=== PATIENT | male | born 1940 | race Hispanic/Latino ===

== ENCOUNTER 2021-12-19 14:32 | Emergency (ER) | payer MEDICARE ==
[2021-12-19 15:16] LABS: Basophils % (Auto) 0.3 % (0.0-1.8); Eosinophils % (Auto) 0.2 % (0.0-4.3); Lymphocytes # (Auto) 0.5 K/mm3 (1.2-5.4); Lymphocytes % (Auto) 4.9 % (13.4-35.0); Mean Corpuscular HGB Conc 36 % (32-34); Mean Corpuscular Volume 90 fl (84-94); Monocytes # (Auto) 0.6 K/mm3 (0.0-0.8); Monocytes % (Auto) 5.1 % (0.0-7.3); Platelet Count 285 K/mm3 (140-440); Red Blood Count 4.84 M/mm3 (3.65-5.03); Red Cell Distribution Width 14.4 % (13.2-15.2)
[2021-12-19 15:17] LABS: Hematocrit 43.5 % (35.5-45.6); Hemoglobin 15.6 gm/dl (11.8-15.2)
--- NOTE | 2021-12-19 15:18 | XRay Report ---
CHEST 1 VIEW 12/19/2021 2:57 PM INDICATION / CLINICAL INFORMATION: Syncope. COMPARISON: 12/06/08. FINDINGS: SUPPORT DEVICES: None. HEART / MEDIASTINUM: The heart size and pulmonary vasculature are normal. There is mild calcification in the aortic arch without aneurysm. LUNGS / PLEURA: No significant pulmonary or pleural abnormality. No pneumothorax. ADDITIONAL FINDINGS: No significant additional findings. IMPRESSION: No acute findings. Signer Name: David Ascencio MD Signed: 12/19/2021 3:14 PM Workstation Name: Dr. [email or web address]
--- NOTE | 2021-12-19 15:18 | XRay Report ---
PELVIS ONE VIEW INDICATION: fall. COMPARISON: None. IMPRESSION: No pelvic fracture, bone lesion or diastasis is identified. There are mild symmetric deg enerative changes at the SI joints and lower lumbar spine. Bilateral hips are unremarkable. 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 The soft tissues are unremarkable. Signer Name: Esa Hong Jr, MD Signed: 12/19/2021 3:14 PM Workstation Name: [id number]
[2021-12-19 15:25] LABS: INR 0.98 (0.87-1.13)
--- NOTE | 2021-12-19 15:31 | Cat Scan Report ---
CT head/brain wo con INDICATION / CLINICAL INFORMATION: 81 years Male; Syncope. TECHNIQUE: Routine CT head without contrast. All CT scans at this location are performed using CT dos e reduction for ALARA by means of automated exposure control. COMPARISON: None. 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 Small synovial cyst is seen adjacent to the paracentral lobule on the left. No acute hemorrhage, mass effect, midline shift, hydrocephalus, or acute, large territorial infarct. Mild to moderate, diffuse cerebral and cerebellar atrophy. Moderate degree of hippocampal atrophy sug gested bilaterally. There are [id number] areas of decreased attenuation in the white matter of the cerebral hemisph eres. These are nonspecific findings and may be related to microangiopathy (hypertension, diabetes, a therosclerosis), given the patient's age. It might be difficult to evaluate for small areas of ischem ia without diffusion imaging by MRI. CRANIOCERVICAL JUNCTION: No significant abnormality. ORBITS: No significant abnormality of visualized orbits. SINUSES / MASTOIDS: Visualized paranasal sinuses and mastoid air cells are essentially clear. ADDITIONAL FINDINGS: Atherosclerotic disease is seen in the anterior and posterior circulation. IMPRESSION: 1. No focal intra-axial mass, hemorrhage, hydrocephalus, or acute, large territorial infarct. Signer Name: Lui Villafuerte MD, III Signed: 12/19/2021 3:26 PM Workstation Name: [id number]
[2021-12-19 15:36] LABS: Creatine Kinase MB 2.6 ng/mL (0.0-4.0)
[2021-12-19 15:37] LABS: Alanine Aminotransferase 15 units/L (7-56); Albumin 4.4 g/dL (3.9-5); BUN/Creatinine Ratio 17; Blood Urea Nitrogen 20 mg/dL (9-20); Calcium 9.8 mg/dL (8.4-10.2); Hemolysis Index 4
--- NOTE | 2021-12-19 18:36 | Emergency Department Report ---
ED General Adult HPI - General Chief complaint: Syncope Stated complaint: REPEAT FALLS Time Seen by Provider: 12/19/21 14:49 Source: patient, EMS Mode of arrival: Stretcher Limitations: No Limitations - History of Present Illness Initial comments: Patient presents to the emergency department via EMS for a fall that occurred at home. Per EMS the patient fell while ambulating at home and upon getting up he fell again. Patient has no complaints of pain but is not sure if he hit his head or not. There is no loss of consciousness. Patient is alert oriented x3 on initial presentation. Patient denies chest pain, shortness breath, or headache. -: Sudden Severity scale (0 -10): 0 Consistency: now resolved Improves with: none Worsens with: none Associated Symptoms: denies other symptoms Treatments Prior to Arrival: none - Related Data Home Medications Medication Instructions Recorded Confirmed Last Taken Aspirin EC [Halfprin EC] 81 mg PO DAILY 09/17/14 09/17/14 09/17/14 Lisinopril [Zestril] 30 mg PO QDAY 09/17/14 09/17/14 09/17/14 Multivitamin [Multi Vitamin Daily] 1 tab PO DAILY 09/17/14 09/17/14 09/17/14 Pravastatin [Pravachol] 40 mg PO DAILY 09/17/14 09/17/14 09/17/14 Previous Rx's Medication Instructions Recorded Last Taken Type lisinopriL [Zestril TAB] 40 mg PO QDAY 30 Days tablet 09/18/14 Unknown Rx Allergies Allergy/AdvReac Type Severity Reaction Status Date / Time No Known Allergies Allergy Unverified 09/17/14 21:41 ED Review of Systems ROS: Stated complaint: REPEAT FALLS Other details as noted in HPI Comment: All other systems reviewed and negative Constitutional: denies: chills, fever Eyes: denies: eye pain, eye discharge, vision change ENT: denies: ear pain, throat pain Respiratory: denies: cough, shortness of breath, wheezing Cardiovascular: denies: chest pain, palpitations Endocrine: no symptoms reported Gastrointestinal: denies: abdominal pain, nausea, diarrhea Genitourinary: denies: urgency, dysuria Musculoskeletal: denies: back pain, joint swelling, arthralgia Skin: denies: rash, lesions Neurological: denies: headache, weakness, paresthesias Psychiatric: denies: anxiety, depression Hematological/Lymphatic: denies: easy bleeding, easy bruising ED Past Medical Hx - Past Medical History Hx Hypertension: Yes Additional medical history: hyperlipidemia. diverticulitis - Surgical History Hx Cholecystectomy: Yes - Social History Smoking Status: Never Smoker Substance Use Type: None - Medications Home Medications: Home Medications Medication Instructions Recorded Confirmed Last Taken Type Aspirin EC [Halfprin EC] 81 mg PO DAILY 09/17/14 09/17/14 09/17/14 History Lisinopril [Zestril] 30 mg PO QDAY 09/17/14 09/17/14 09/17/14 History Multivitamin [Multi Vitamin Daily] 1 tab PO DAILY 09/17/14 09/17/14 09/17/14 History Pravastatin [Pravachol] 40 mg PO DAILY 09/17/14 09/17/14 09/17/14 History lisinopriL [Zestril TAB] 40 mg PO QDAY 30 Days tablet 09/18/14 Unknown Rx ED Physical Exam - General Limitations: No Limitations General appearance: alert, in no apparent distress - Head Head exam: Present: atraumatic, normocephalic - Eye Eye exam: Present: normal appearance, PERRL, EOMI - ENT ENT exam: Present: mucous membranes moist - Neck Neck exam: Present: normal inspection - Respiratory Respiratory exam: Present: normal lung sounds bilaterally. Absent: respiratory distress - Cardiovascular Cardiovascular Exam: Present: regular rate, normal rhythm. Absent: systolic murmur, diastolic murmur, rubs, gallop - GI/Abdominal GI/Abdominal exam: Present: soft, normal bowel sounds, hernia (The patient has an anterior abdominal wall hernia that is nonincarcerated and easily reducible). Absent: distended, tenderness - Rectal Rectal exam: Present: deferred - Extremities Exam Extremities exam: Present: normal inspection - Back Exam Back exam: Present: normal inspection - Neurological Exam Neurological exam: Present: alert, oriented X3, CN II-XII intact. Absent: motor sensory deficit - Psychiatric Psychiatric exam: Present: normal affect, normal mood - Skin Skin exam: Present: warm, dry, intact, normal color. Absent: rash ED Medical Decision Making - Lab Data Result diagrams: 12/19/21 14:58 12/19/21 14:58 Lab Results 05/10/22 05/10/22 05/10/22 Range/Units 14:58 14:58 14:58 WBC 11.2 H (4.5-11.0) K/mm3 RBC 4.84 (3.65-5.03) M/mm3 Hgb 15.6 H (11.8-15.2) gm/dl Hct 43.5 (35.5-45.6) % MCV 90 (84-94) fl MCH 32 (28-32) pg MCHC 36 H (32-34) % RDW 14.4 (13.2-15.2) % Plt Count 285 (140-440) K/mm3 Lymph % (Auto) 4.9 L (13.4-35.0) % [place] % (Auto) 5.1 (0.0-7.3) % Eos % (Auto) 0.2 (0.0-4.3) % Baso % (Auto) 0.3 (0.0-1.8) % Lymph # (Auto) 0.5 L (1.2-5.4) K/mm3 [place] # (Auto) 0.6 (0.0-0.8) K/mm3 Eos # (Auto) 0.0 (0.0-0.4) K/mm3 Baso # (Auto) 0.0 (0.0-0.1) K/mm3 Seg Neutrophils % 89.5 H (40.0-70.0) % Seg Neutrophils # 10.0 H (1.8-7.7) K/mm3 PT 14.1 (12.2-14.9) Sec. INR 0.98 (0.87-1.13) Sodium 140 (137-145) mmol/L Potassium 3.9 (3.6-5.0) mmol/L Chloride 105.2 (98-107) mmol/L Carbon Dioxide 18 L (22-30) mmol/L Anion Gap 21 mmol/L BUN 20 (9-20) mg/dL Creatinine 1.2 (0.8-1.3) mg/dL Estimated GFR 58 ml/min BUN/Creatinine Ratio 17 % Glucose 196 H (75-100) mg/dL Calcium 9.8 (8.4-10.2) mg/dL Magnesium 2.20 (1.7-2.3) mg/dL Total Bilirubin 0.50 (0.1-1.2) mg/dL AST 16 (5-40) units/L ALT 15 (7-56) units/L Alkaline Phosphatase 56 (35-129) units/L Total Creatine Kinase 65 (55-170) units/L CK-MB (CK-2) 2.6 (0.0-4.0) ng/mL CK-MB (CK-2) Rel Index 4.0 (0-4) Troponin T < 0.010 (0.00-0.029) ng/mL Total Protein 6.8 (6.3-8.2) g/dL Albumin 4.4 (3.9-5) g/dL Albumin/Globulin Ratio 1.8 % - EKG Data -: EKG Interpreted by Me EKG shows normal: sinus rhythm Rate: normal - Radiology Data Radiology results: report reviewed - Medical Decision Making Results discussed with patient Critical care attestation.: If time is entered above; I have spent that time in minutes in the direct care of this critically ill patient, excluding procedure time. ED Disposition Clinical Impression: Fall, Weakness Disposition: 01 HOME / SELF CARE / HOMELESS Is pt being admited?: No Does the pt Need Aspirin: No Condition: Stable Instructions: Weakness Additional Instructions: return if worse Referrals: MALICK GUTIERRES [Other] - 3-5 Days Time of Disposition: 18:38
[2021-12-19 19:36] VITALS: BP 116/59
== END 2021-12-19 19:37 | disposition home or self-care (01) ==
LOC: ED 14:32
DX: R53.1 Weakness (principal); R29.6 Repeated falls; I10 Essential (primary) hypertension; Z90.49 Acquired absence of other specified parts of digestive tract
CPT/HCPCS: 36415; 70450; 71045; 72170; 80053; 82550; 82553; 83735; 84484; 85025; 85610; 93005; 99284